=== PATIENT | male | born 1955 | race Caucasian/White ===

== ENCOUNTER 2018-09-21 18:09 | Emergency (ER) | payer MEDICARE, MEDICAID ==
[~2018-09-21] VITALS: Ht 165.1 cm; Wt 109.6 kg
[~2018-09-21 18:09] MED LIST: ALBU18HF2 IH; ALLO100T PO; AMLO5TAB PO; BUPR300T54 PO; CLON-527 PO; FURO40TA4 PO; IP6 PO; METF-436 PO; MONT10TA21 PO; NEBI5TAB10 PO
[2018-09-21 18:14] VITALS: BP 161/76
== END 2018-09-21 20:18 | disposition home or self-care (01) ==
LOC: ER 18:10
DX: N50.89 Other specified disorders of the male genital organs (principal); R00.2 Palpitations; R01.1 Cardiac murmur, unspecified; I10 Essential (primary) hypertension; J44.9 Chronic obstructive pulmonary disease, unspecified; K21.9 Gastro-esophageal reflux disease without esophagitis; E11.9 Type 2 diabetes mellitus without complications; M10.9 Gout, unspecified; F41.9 Anxiety disorder, unspecified; F32.9 Major depressive disorder, single episode, unspecified; Z88.1 Allergy status to other antibiotic agents; Z88.6 Allergy status to analgesic agent; Z91.018 Allergy to other foods; Z79.899 Other long term (current) drug therapy; Z86.73 Personal history of transient ischemic attack (TIA), and cerebral infarction without residual deficits
CPT/HCPCS: 93005; 99283

== ENCOUNTER 2019-09-05 07:25 | Day surgery (SDC) | payer MEDICARE, MEDICAID ==
[2019-08-29 16:47] LABS: BASOPHILS % (AUTO) 0.4 % (0-1); EOSINOPHILS # (AUTO) 0.2 X10'3 (0-0.9); EOSINOPHILS % (AUTO) 2.3 % (0-6); LYMPHOCYTES # (AUTO) 1.3 X10'3 (1.1-4.8); LYMPHOCYTES % (AUTO) 12.2 % (21-51); MEAN CORPUSCULAR HEMOGLOBIN 31.3 PG (27.0-31.0); MEAN CORPUSCULAR HGB CONC 33.8 g/dL (33.0-36.5); MEAN CORPUSCULAR VOLUME 92.7 FL (78-98); MEAN PLATELET VOLUME 7.1 FL (7.4-10.4); MONOCYTES # (AUTO) 0.9 X10'3 (0-0.9); MONOCYTES % (AUTO) 8.8 % (2-12); NEUTROPHILS # (AUTO) 7.9 X10'3 (1.8-7.7); NEUTROPHILS % (AUTO) 76.3 % (42-75); PRE OP HEMATOCRIT 49.4 % (42.0-52.0); PRE OP HEMOGLOBIN 16.7 g/dL (14.0-17.9); PRE OP PLATELET COUNT 289 X10'3 (140-440); RED BLOOD COUNT 5.33 X10'6 (4.70-6.10); RED CELL DISTRIBUTION WIDTH 14.1 % (11.5-14.5)
[2019-08-29 16:55] LABS: PRE OP PROTIME 10.3 SECONDS (9.0-12.0)
[2019-08-29 16:57] LABS: ALBUMIN 3.7 G/DL (3.4-5.0); ALBUMIN/GLOBULIN RATIO 0.9 (1.1-1.5); ALKALINE PHOSPHATASE 72 IU/L (46-116); BLOOD UREA NITROGEN 11 MG/DL (7-18); BUN/CREATININE RATIO 9.8 (5.4-32.0); CALCIUM 9.3 MG/DL (8.5-10.1); CHLORIDE 104 MMOL/L (99-107); CREATININE 1.12 MG/DL (0.60-1.10); PRE OP ALT 42 U/L (30-65); PRE OP ANION GAP 10 (8-16); PRE OP AST 26 U/L (10-37); PRE OP BILIRUB, TOTAL 0.6 MG/DL (0.0-1.0); PRE OP GLUCOSE 107 MG/DL (70-104); PRE OP POTASSIUM 3.9 MMOL/L (3.4-5.1); PRE OP SODIUM 141 MMOL/L (135-145); TOTAL CARBON DIOXIDE 27.4 MMOL/L (24-32); TOTAL PROTEIN 7.7 G/DL (6.4-8.2); eGFR 66 ML/MIN
[2019-09-05] VITALS (9 sets, daily range): BP systolic 137–158; BP diastolic 69–89
[~2019-09-05] VITALS: Ht 165.1 cm; Wt 121.0 kg
[~2019-09-05 07:25] MED LIST changes: +ALPR0.5T8 PO; -BUPR300T54 PO; +CELE-193 PO; -CLON-527 PO; +CLOP75TA35 PO; +DOCUMENT DATE & TIME OF BETA-BLOCKER PO ONE; +DULA1.5P SQ; -IP6 PO; +LEVO125T8 PO; +LOSA25TA96 PO; +POTA20TA19 PO; +albuterol 2.5 MG/3 ML nebule NEB ONE; +ceFOXitin sod/dextrose 2g/50ml 50 ML IV ONE; +famotidine 20mg tablet PO ONE; +ringers solution, lacted 1,000 ML IV SCH; +scopolamine 1.5mg patch.TD72 TD ONE
[2019-09-05 09:17] LABS: CLARITY,URINE CLEAR (Clear); COLOR,URINE YELLOW (Yellow); GLUCOSE, URINE NEGATIVE (Neg); KETONES,URINE NEGATIVE (Neg); LEUKOCYTE ESTERASE ,URINE NEGATIVE (Neg); NITRITES, URINE NEGATIVE (Neg); OCCULT BLOOD,URINE NEGATIVE (Neg); PROTEIN,URINE TRACE mg/dl (Neg); UROBILINOGEN,URINE 0.2 E.U/dL (0.2-1.0)
[2019-09-05 09:21] LABS: UA COLLECTION TYPE CLN CATCH MIDSTREAM
[2019-09-05 09:25] LABS: SQUAMOUS EPITHELIAL CELL,UR FEW /LPF (FEW)
[2019-09-05 09:26] LABS: BACTERIA,URINE FEW /HPF (Neg); RBC,URINE 0-2 /HPF (0-2); WBC,URINE 0-4 /HPF (0-4)
[2019-09-05] MEDS ORDERED: ceFAZolin 1000mg inj ONE (09:57)
[2019-09-05] MEDS ORDERED: BUPIVAcaine/PF 2.5 mg/ml (0.25%) 30ml vial ONE (09:58)
[2019-09-05] MEDS ORDERED: sevoflurane 250ml liquid IH ONE (10:00)
[2019-09-05] MEDS ORDERED: fentaNYL/PF 50MCG/1 ML 2ML syringe ONE (10:13)
[2019-09-05] MEDS ORDERED: midazolam 2 mg/2 ml injection ONE (10:14)
[2019-09-05] MEDS ORDERED: ringers solution, lacted 1,000 ML IV SCH (10:53)
[2019-09-05] MEDS ORDERED: meperidine/PF 25mg/ml syringe IV PRN ×3 (10:55)
[2019-09-05] MEDS ORDERED: morphine 2 MG/ML inj. syringe IV PRN (10:55)
[2019-09-05] MEDS ORDERED: ondansetron/PF 4mg/2ml inj IV PRN (10:55)
[2019-09-05] MEDS ORDERED: proCHLORperazine 10 MG/2 ml inj IV PRN (10:55)
[2019-09-05] MEDS ORDERED: morphine 4 MG/ML inj SYRINge IV PRN (10:55)
[2019-09-05] MEDS ORDERED: ondansetron/PF 4mg/2ml inj ONE (11:06)
[2019-09-05] MEDS ORDERED: rocuronium 10mg/ml inj IV ONE (11:07)
[2019-09-05] MEDS ORDERED: propofol inj 20 ML IV ONE (11:07)
[2019-09-05] MEDS ORDERED: neostigmine methylsulfate 1 MG/ML 10ml vial ONE (11:08)
[2019-09-05] MEDS ORDERED: glycopyrrolate 0.2mg/ml inj ONE (11:08)
[2019-09-05] MEDS ORDERED: dexamethasone sod phosphate 4mg/ml inj. ONE (11:08)
--- NOTE | 2019-09-05 11:40 | NUR ---
Received from OR via BED , accompanied by Anesthesiologist DR MONCADA and report given by Anesthesiolgist. PATIENT WAKING UP, DENIES PAIN, V/S WNL, NEUROVASCULAR CHECKS INTACT, 20G PIV LUE, SCD ON, BANDAIDS TO LAP SIGHTS OF ABDOMEN CDI
--- NOTE | 2019-09-05 12:50 | NUR ---
PATIENT A&OX4, DENIES PAIN, V/S WNL, NEUROVASCULAR CHECKS INTACT, 20G PIV LUE D/C, SCD OFF, BANDAIDS TO LAP SIGHTS OF ABDOMEN CDI. I HAVE REVIEWED D/C INSTRUCTIONS WITH PATIENT AND HE HAS VERBALIZED UNDERSTANDING. PATIENT D/C HOME WITH ALL BELONGINGS AND HIS CAREGIVER GAVE TRANSPORT
== END 2019-09-05 12:50 | disposition home or self-care (01) ==
LOC: PAS 07:25
PROVIDERS: ATTEND Surgery
PROC: 0FT44ZZ Resection of Gallbladder, Percutaneous Endoscopic Approach (ICD-10-PCS; principal; 2019-09-05 10:12)
DX: K80.10 Calculus of gallbladder with chronic cholecystitis without obstruction (principal); R10.11 Right upper quadrant pain; M19.90 Unspecified osteoarthritis, unspecified site; J45.909 Unspecified asthma, uncomplicated; I10 Essential (primary) hypertension; E11.9 Type 2 diabetes mellitus without complications; G47.30 Sleep apnea, unspecified; E66.01 Morbid (severe) obesity due to excess calories; Z86.73 Personal history of transient ischemic attack (TIA), and cerebral infarction without residual deficits; Z87.01 Personal history of pneumonia (recurrent); Z88.5 Allergy status to narcotic agent; Z88.1 Allergy status to other antibiotic agents; Z91.018 Allergy to other foods; Z87.891 Personal history of nicotine dependence; Z98.890 Other specified postprocedural states; Z79.899 Other long term (current) drug therapy; I49.8 Other specified cardiac arrhythmias
CPT/HCPCS: 36415; 47562; 71046; 80053; 81001; 82948; 85025; 85610; 85730; J0690; J0694; J1100; J2175; J2250; J2405; J2704; J2710; J3010; J3490; J7120; U0003; 88304; A4215; A4618; A7000

== ENCOUNTER → 2020-10-10 | Emergency (ER) | payer MEDICARE, MEDICAID ==
[~2020-10-10] VITALS: Ht 165.1 cm; Wt 128.6 kg
[~2020-10-10] MED LIST changes: +CLOP75TA34 PO; -CLOP75TA35 PO; -DOCUMENT DATE & TIME OF BETA-BLOCKER PO ONE; -albuterol 2.5 MG/3 ML nebule NEB ONE; -ceFOXitin sod/dextrose 2g/50ml 50 ML IV ONE; -famotidine 20mg tablet PO ONE; -ringers solution, lacted 1,000 ML IV SCH; -scopolamine 1.5mg patch.TD72 TD ONE
[2020-10-10 07:59] VITALS: BP 188/70
--- NOTE | 2020-10-10 16:06 | NUR ---
Patient not in lobby x3, Dr. Weber aware.
== END | disposition left against medical advice (07) ==
LOC: ER 07:44
DX: M79.604 Pain in right leg (principal); Z53.21 Procedure and treatment not carried out due to patient leaving prior to being seen by health care provider